=== PATIENT | male | born 1985 | race Caucasian/White ===

== ENCOUNTER → 2023-03-08 18:33 | Outpatient (CLI) | payer OTHER, SELFPAY ==
--- NOTE | 2023-03-08 18:36 | DI.MRI.S_ITS ---
PROCEDURE: MR SHOULDER LT WO CON INDICATIONS: Pain in unspecified shoulder TECHNIQUE: Noncontrast oblique coronal T2 fast spin echo with fat saturation, oblique sagittal T1 spin echo and T2 fast spin echo with fat saturation, axial T1 spin echo and T2 fast spin echo with fat saturation through the shoulder. COMPARISON: None. FINDINGS: Image quality: Excellent. Rotator cuff: Low-grade partial-thickness articular surface tearing of the superior aspect of the subscapularis tendon at the humeral insertion site. The supraspinatus, infraspinatus, and subscapularis tendons otherwise appear intact throughout. Sagittal images demonstrate no muscle atrophy. Bones and bursae: No bone marrow contusions or fractures. Moderate acromioclavicular joint degeneration. The acromion demonstrates conventional anatomy, without an os acromiale. No pathologic subacromial-subdeltoid or subcoracoid bursal fluid is present. Capsule and soft tissues: Labrum is grossly intact The long head of the biceps tendon demonstrates normal location and morphology. The rotator interval appears normal, without fibrosis. The coracohumeral ligament is normal in thickness. IMPRESSION: 1. Low-grade tearing of the subscapularis tendon. 2. Acromioclavicular joint osteoarthritis. Dictated by: Ritesh Rodriguez M.D. on 03/09/2023 at 9:04 Approved by: Ritesh Rodriguez M.D. on 03/09/2023 at 9:18
== END ==
DX: M19.012 Primary osteoarthritis, left shoulder (principal); M75.112 Incomplete rotator cuff tear or rupture of left shoulder, not specified as traumatic; M25.512 Pain in left shoulder
CPT/HCPCS: 73221

== ENCOUNTER → 2024-07-09 08:15 | Outpatient (CLI) | payer OTHER, SELFPAY ==
--- NOTE | 2024-07-09 08:19 | DI.RAD.S_ITS ---
PROCEDURE: XR HAND RT 2V INDICATIONS: RIGHT HAND PAIN TECHNIQUE: 3 views of the hand(s) acquired. COMPARISON: None. FINDINGS: Bones: No fractures or dislocations. Carpal bones are normally aligned. No suspicious bony lesions. Soft tissues: No suspicious soft tissue calcifications. IMPRESSION: No acute bony abnormality. Approved by: Ryley Dong M.D. on 07/09/2024 at 17:58
[2024-07-09 10:18] LABS: Alanine Aminotransferase 34 IU/L (<50); Albumin 4.7 g/dL (3.5-5.0); Albumin Globulin Ratio 1.9 (1.0-2.8); Alkaline Phosphatase 54 U/L (38-126); Aspartate Aminotransferase 29 IU/L (17-59); BUN Creatinine Ratio 13.9 (6-22); Blood Urea Nitrogen 16 mg/dL (9-20); Calcium 9.7 mg/dL (8.4-10.2); Carbon Dioxide 28 mmol/L (22-32); Chloride 102 mmol/L (98-107); Estimated Glomerular Filt Rate > 60 mL/min (>60); Globulin 2.5 g/dL (1.7-4.1); Glucose 102 mg/dL (70-100); HEMOLYSIS < 15 (0-50); Potassium 4.6 mmol/L (3.4-5.1); Sodium 137 mmol/L (137-145); Total Protein 7.2 g/dL (6.3-8.2)
== END ==
LOC: RAD 08:17
PROVIDERS: Referring Provider Chiropractor; Visit Provider Chiropractor
DX: M13.80 Other specified arthritis, unspecified site (principal); M84.40XA Pathological fracture, unspecified site, initial encounter for fracture; E11.9 Type 2 diabetes mellitus without complications
CPT/HCPCS: 36415; 73120; 80053

== ENCOUNTER 2025-02-16 16:11 | Emergency (ER) | payer OTHER, SELFPAY ==
[2025-02-16 16:16] VITALS: BP 116/69; PULSE 72; RESP 16; TEMP 36.8; O2SAT 98; BMI 25.1
--- NOTE | 2025-02-16 16:36 | ED_ITS ---
HPI - Male Genitourinary General Chief complaint: Urogenital-Male Stated complaint: poss UTI Time Seen by Provider: 02/16/25 16:25 Source: patient Mode of arrival: Ambulatory History of Present Illness HPI Narrative: This is a 39-year-old male presenting with concern for possible UTI. Patient states that this morning he noticed some burning with urination which has been persistent/worsening throughout the day. He endorses mild persistent irritation even when he has not peeing but it is much worse when he is peeing. He also states he has been feeling increasing frequency throughout the day. Feels like he has to pee every 15 minutes or so. He denies abdominal pain, pelvic pain, flank pain, fevers, chills, testicular pain, abnormal penile discharge or any concern for STIs. He states he does not believe he has had a UTI before. Related Data Previous Rx's Medication Instructions Recorded nitrofurantoin 100 mg PO Q12H 7 days #14 caps 02/16/25 monohydrate/macrocrystals 100 mg capsule (Macrobid) Allergies Allergy/AdvReac Type Severity Reaction Status Date / Time No Known Drug Allergies Allergy Verified 02/16/25 16:19 Review of Systems Review of Systems Narrative: See HPI Patient History tobacco type: smokeless tobacco Exam Narrative Exam Narrative: GENERAL: [39] year old patient appears stated age. Well-developed patient, generally healthy-appearing, in mild distress. Nontoxic appearing. Note patient is using the restroom frequently. HEAD: Atraumatic. Normocephalic. EYES: Pupils equal round and reactive. Extraocular motions intact. No scleral icterus. No injection or drainage. ENT: Nose without bleeding, purulent drainage. Airway patent. NECK: Trachea midline. Non tender CARDIOVASCULAR: Regular rate and rhythm without murmurs, gallops, or rubs. RESPIRATORY: Clear to auscultation. Breath sounds equal bilaterally. No wheezes, rales, or rhonchi. GASTROINTESTINAL: Abdomen soft, very mild suprapubic tenderness, otherwise non- tender, nondistended, no CVA tenderness. EXTREMITIES: Moving all extremities, normal gait BACK: Nontender without deformity or crepitance. No flank tenderness. NEURO: AOx3. SKIN: No rash or erythema of visible areas Initial Vital Signs Initial Vital Signs: Vital Signs Temperature 98.2 F 02/16/25 16:16 Pulse Rate 72 04/05/25 16:16 Respiratory Rate 16 02/16/25 16:16 Blood Pressure 116/69 02/16/25 16:16 Pulse Oximetry 98 02/16/25 16:16 Oxygen Delivery Method Room Air 02/16/25 16:16 Course Orders Ordered: ED Orders 02/16/25 16:41 Urine Culture Stat Urine Microscopic Stat Discontinued Medications Azithromycin (Azithromycin 250 Mg Tablet) 1,000 mg PO NOW ONE Stop: 02/16/25 17:43 Vital Signs Vital signs: Vital Signs - 8 hr 02/16/25 16:16 Temperature 98.2 F Pulse Rate 72 Respiratory Rate 16 Blood Pressure 116/69 Pulse Oximetry 98 Oxygen Delivery Method Room Air MDM - Male Genitourinary Differential Diagnosis Differential diagnosis: Likely urinary tract infection and urethritis Lab Data Attestation: I reviewed the patient's lab results. Labs: Lab Results 02/16/25 Range/Units 16:41 Urine RBC 0-1/hpf (0-5/HPF) Urine WBC 5-10/hpf H (0-5/HPF) Ur Squamous Epith Cells None seen (0-5/HPF) Urine Bacteria None seen (None) Ur Culture Indicated? Specimen cultured Vol Urine Centrifuged 10ml (spun) MDM Narrative Medical decision making narrative: 39-year-old male presents with concern for burning with urination since this morning with increasing urinary urgency/frequency today. Denies concern for STIs. Urine microscopic does show white blood cells but no bacteria. Patient's symptoms are suggestive of UTI versus urethritis. He denies any discharge or purulent material from his penis and denies again any concern for STIs. He does also have no concerning symptoms suggestive of pyelonephritis or severe UTI. E xam is unremarkable very mild suprapubic tenderness. Patient was given 1 dose of azithromycin today in the ER 1 g; which would treat chlamydial urethritis. And sent out with a prescription for Macrobid. Urine culture sent for further evaluation. Declined testing for STIs. Return precautions provided, follow-up plan discussed, all questions answered. Discharge Plan Departure Patient Disposition: Home Clinical Impression: Urethritis Urinary tract infection Qualifiers: Urinary tract infection type: acute cystitis Hematuria presence: without hematuria Qualified Code(s): N30.00 - Acute cystitis without hematuria Instructions: DI for Urinary Tract Infection (UTI) Activity Restrictions/Additional Instructions: *You have been diagnosed with [UTI/urethritis] *What to do: *Please continue to take your regular medications as directed. [ 1] New medication prescriptions sent to your pharmacy: [Macrobid] [ ] New medication written as a paper prescription [ ] No new medications given *Please follow up with your primary care provider in 2-3 days, call for an appointment. Let them know you were seen in the Emergency Department and that we ask that you be seen in follow up. We will electronically transmit a record of today's note if your PCP is in our system. Your urine dip was suspicious for UTI. Your symptoms are consistent with UTI/urethritis. We did not test for STIs today as you deny concern for this. 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 We sent your urine for culture which is standard practice to further evaluate the cause of your symptoms and make sure you are on the right antibiotic. If you do feel like your symptoms are not improving or you have new or worsening symptoms such as flank pain fevers chills pelvic pain or other symptoms please make sure you seek re-evaluation. I anticipate you will do fine. I hope you feel better soon. *If you do not have a primary care provider please contact the [facility] Resource line at [phone]. They will ask some questions about your medical history and help get you set up with a doctor in the community. *Return to Emergency Department if you should have any new, worsening or concerning symptoms, such as [fever greater than 101 F, shaking chills, worseni ng pain, persistent vomiting or other bothersome symptoms] Prescriptions: New nitrofurantoin monohyd/m-cryst [Macrobid] 100 mg capsule 100 mg PO Q12H 7 Days Qty: 14 0RF Rx Instructions: must administer with a meal/food Referrals: ProviderNicole [Primary Care Provider] - Stand Alone Forms: Patient Portal/API/Survey
[2025-02-16 17:09] LABS: Bacteria Urine None Seen; Culture Indicated Urine Specimen Cultured; RBC Urine 0-1/HPF (0-5/HPF); Squamous Epithelial Cell Urine None Seen (0-5/HPF); Urine Volume 10mL (spun); WBC Urine 5-10/HPF (0-5/HPF)
[2025-02-16] MEDS: AZITHROMYCIN 250 MG TABLET 1000 MG PO (17:49)
[2025-02-16 18:08] VITALS: BP 116/70; PULSE 73; RESP 16; O2SAT 98
== END 2025-02-16 17:53 | disposition home or self-care (01) ==
PROVIDERS: Emergency Provider Student in an Organized Health Care Education/Training Program
DX: N30.00 Acute cystitis without hematuria (principal); N34.2 Other urethritis
CPT/HCPCS: 81015; 87086; 99283

== ENCOUNTER 2025-10-16 13:21 | Emergency (ER) | payer OTHER, SELFPAY ==
[2025-10-16 13:50] VITALS: BP 104/73; PULSE 91; RESP 16; TEMP 36.8; O2SAT 96; BMI 25.7
[2025-10-16 14:30] LABS: Add Manual Diff / Slide Review NO; Hematocrit 44.5 % (41-53); Hemoglobin 15.5 g/dL (13.5-17.5); Lymphocytes Absolute Auto 1400 /uL (1100-4500); Mean Corpuscular HGB Conc 34.8 % (30-36); Mean Corpuscular Hemoglobin 29.7 PG (26-34); Mean Corpuscular Volume 85.2 fL (80-100); Platelet Count 258 X10^3/uL (150-400)
[2025-10-16 14:33] LABS: Alanine Aminotransferase 35 IU/L (<50); Albumin 4.9 g/dL (3.5-5.0); Albumin Globulin Ratio 1.5 (1.0-2.8); Alkaline Phosphatase 56 U/L (38-126); Blood Urea Nitrogen 23 mg/dL (9-20); Calcium 9.1 mg/dL (8.4-10.2); Carbon Dioxide 25 mmol/L (22-32); Chloride 105 mmol/L (98-107); Estimated Glomerular Filt Rate > 60 mL/min (>60); Globulin 3.2 g/dL (1.7-4.1); Glucose 88 mg/dL (70-99); HEMOLYSIS 18 (0-50); Lipase 153 U/L (23-300); Potassium 4.2 mmol/L (3.4-5.1); Sodium 140 mmol/L (137-145); Total Protein 8.1 g/dL (6.3-8.2)
--- NOTE | 2025-10-16 14:46 | ED_ITS ---
HPI - Abdominal Pain General Chief Complaint: Abdominal Pain Stated Complaint: abd pain/flare up (ulcer) Time Seen by Provider: 10/16/25 14:39 History of Present Illness HPI narrative: Mr. Mahoney is a pleasant 40-year-old male with no reported past medical history who presents to the emergency department for acute on chronic epigastric abdominal pain. Patient states he has been dealing with epigastric abdominal pain for about 6 months however it has been getting much worse recently. He is having burning pain in the center of his upper abdomen. Sometimes at night he is having burning/acid reflux. He saw primary care doctor 1 week ago who started him on omeprazole however this has not helped. He has also changed his diet, cut out alcohol, acidic foods and other triggers. He denies fevers, chills, vomiting, diarrhea, constipation, black or bloody stools. No dysuria. No prior upper endoscopies. Related Data Allergies Allergy/AdvReac Type Severity Reaction Status Date / Time No Known Drug Allergies Allergy Verified 10/16/25 13:55 Review of Systems Review of Systems ROS Unobtainable: All systems reviewed & are unremarkable except as noted in HPI and below Patient History tobacco type: smokeless tobacco Exam Narrative Exam Narrative: GENERAL: 40 year old patient appears stated age. Well-developed patient, in no acute distress. HEAD: Atraumatic. Normocephalic. EYES: Extraocular motions intact. No scleral icterus. No injection or drainage. NECK: Trachea midline. Cervical ROM intact. CARDIOVASCULAR: Regular rate and rhythm. RESPIRATORY: ?Nonlabored respirations. ?Speaking in clear, full sentences. ?Clear to auscultation. Breath sounds equal bilaterally. No wheezes, rales, or rhonchi. ? GASTROINTESTINAL: Abdomen soft, nondistended. Mild epigastric tenderness to palpation. No rebound or guarding. Negative Julio's sign. Negative McBurney's point tenderness. EXTREMITIES: No edema or joint tenderness. BACK: No CVA tenderness. NEURO: AOx3. ?Clear speech. ?Moves all 4 extremities appropriately. SKIN: No rash or erythema of visible areas Initial Vital Signs Initial Vital Signs: Vital Signs Temperature 98.3 F 10/16/25 13:50 Pulse Rate 91 H 10/16/25 13:50 Respiratory Rate 16 10/16/25 13:50 Blood Pressure 104/73 10/16/25 13:50 Pulse Oximetry 96 10/16/25 13:50 Oxygen Delivery Method Room Air 10/16/25 13:50 Course Orders Ordered: ED Orders 10/16/25 14:00 Complete Blood Count AUTO DIFF Stat Comprehensive Metabolic Panel Stat Lipase Stat 10/16/25 14:45 CT abdomen pelvis w con Stat 10/16/25 15:00 Urinalysis and Microscopic Stat Discontinued Medications Al Hydrox/Mg Hydrox/Simethicone 30 ml/ Lidocaine HCl 15 ml 0 ml PO NOW ONE Stop: 10/16/25 14:46 Last Admin: 10/16/25 15:06 Dose: 45 ml Documented By: RAHEL Sodium Chloride (Normal Saline 0.9%) 1,000 mls @ 1,000 mls/hr IV BOLUS ONE Stop: 10/16/25 15:44 Last Infusion: 10/16/25 16:25 Dose: Infused Documented By: Admin: 10/16/25 15:07 Dose: 1,000 mls/hr Documented By: RAHEL Ondansetron HCl (Ondansetron 4 Mg/2 Ml Inj) 4 mg IV NOW PRN PRN Reason: Nausea And Vomiting Ondansetron HCl (Ondansetron 4 Mg Odt) 4 mg PO NOW PRN PRN Reason: Nausea And Vomiting Vital Signs Vital signs: Vital Signs - 8 hr 10/16/25 13:50 10/16/25 17:08 Temperature 98.3 F Pulse Rate 91 H 78 Respiratory Rate 16 17 Blood Pressure 104/73 112/71 Pulse Oximetry 96 99 Oxygen Delivery Method Room Air Room Air MDM - Abdominal Pain Medical Records Attestation: I reviewed the patient's medical records. Lab Data 10/16/25 14:00 10/16/25 14:00 Labs: Lab Results 10/16/25 10/16/25 Range/Units 14:00 15:00 WBC 8.1 (4.5-11.0) X10^3/uL RBC 5.22 (4.5-5.9) X10^6/uL Hgb 15.5 (13.5-17.5) g/dL Hct 44.5 (41-53) % MCV 85.2 (80-100) fL MCH 29.7 (26-34) PG MCHC 34.8 (30-36) % RDW 12.7 (11.6-14.8) % Plt Count 258 (150-400) X10^3/uL Neut % (Auto) 74.9 (50-75) % Lymph % (Auto) 17.1 L (25-40) % [place] % (Auto) 7.0 (3-14) % Eos % (Auto) 0.8 L (2-4) % Baso % (Auto) 0.2 (0-2) % Neut # (Auto) 6100 (8734-7381) /uL Lymph # (Auto) 1400 (3050-8566) /uL [place] # (Auto) 600 (0-900) /uL Eos # (Auto) 100 (0-450) /uL Baso # (Auto) 0 (0-100) /uL Sodium 140 (137-145) mmol/L Potassium 4.2 (3.4-5.1) mmol/L Chloride 105 (98-107) mmol/L Carbon Dioxide 25 (22-32) mmol/L BUN 23 H (9-20) mg/dL Creatinine 1.43 H (0.66-1.25) mg/dL Estimated GFR > 60 (>60) mL/min BUN/Creatinine Ratio 16.1 (6-22) Glucose 88 (70-99) mg/dL Calcium 9.1 (8.4-10.2) mg/dL Total Bilirubin 0.6 (0.2-1.3) mg/dL AST 33 (17-59) IU/L ALT 35 (<50) IU/L Alkaline Phosphatase 56 (38-126) U/L Total Protein 8.1 (6.3-8.2) g/dL Albumin 4.9 (3.5-5.0) g/dL Globulin 3.2 (1.7-4.1) g/dL Albumin/Globulin Ratio 1.5 (1.0-2.8) Lipase 153 (23-300) U/L Urine Color Yellow Urine Appearance Clear Urine pH 5.5 (4.5-8.0) Ur Specific [place] 1.015 (1.000-1.035) Urine Protein Negative (Negative) Urine Glucose (UA) Negative (Negative) g/dL Urine Ketones Trace H (NEGATIVE) Urine Occult Blood Negative (Negative) Urine Nitrate Negative (Negative) Urine Bilirubin Negative (NEGATIVE) Urine Urobilinogen 0.2 (0.2) E.U./dL Ur Leukocyte Esterase Negative (NEGATIVE) Urine RBC 0-1/hpf (0-5/HPF) Urine WBC 0-1/hpf (0-5/HPF) Ur Squamous Epith Cells 0-1 /hpf (0-5/HPF) Urine Bacteria Occasional (0-1) (None) Ur Culture Indicated? Cult not indicated Vol Urine Centrifuged 10ml (spun) Imaging Data CT scan - abdomen/pelvis: Radiologist's Impression: PROCEDURE: CT ABDOMEN PELVIS W CON INDICATIONS: EPIGASTRIC pain TECHNIQUE: After the administration of intravenous contrast, axial sections acquired from the lung bases to the pubic symphysis. Coronal and sagittal reformats were performed. For radiation dose reduction, the following was used: automated exposure control, adjustment of mA and/or kV according to patient size. COMPARISON: None. FINDINGS: Image quality: Diagnostic. Lower Chest: No significant findings. ABDOMEN: Liver: No solid mass. Gallbladder: No radiopaque gallstones or wall thickening. Biliary ducts: No biliary dilation. Pancreas: No ductal dilation. Spleen: Size is within normal limits. Adrenal Glands: No adrenal nodules. Kidneys and Ureters: No hydronephrosis. No solid mass. No complex renal cystic lesion which requires follow up. Stomach and Bowel: Normal colonic caliber, without significant wall thickening. Normal appendix. Mild diverticulosis. No acute diverticulitis. Peritoneum: No abnormal intraperitoneal fluid. No free air. Ventral Wall: No significant ventral hernia. Abdominal Nodes: No retroperitoneal or mesenteric adenopathy by size criteria. Vessels: Aorta and inferior vena cava are normal in size. PELVIS: Pelvic Organs: Unremarkable. Bladder: No bladder wall thickening, accounting for underdistention. Pelvic Nodes: No enlarged lymph nodes. Miscellaneous: No inguinal hernias are seen. Bones: No aggressive osseous abnormality. IMPRESSION: 1. No acute abdominal process identified. 2. Mild diverticulosis. 3. Normal appendix. 4. No findings which explain epigastric pain. Dictated by: Murray Costello M.D. on 10/16/2025 at 15:12 Approved by: Murray Costello M.D. on 10/16/2025 at 15:15 [facility] Narrative Medical decision making narrative: 40-year-old male with no reported past medical history who presents to the emergency department for acute on chronic epigastric abdominal pain. Patient states he has been dealing with epigastric abdominal pain for about 6 months however it has been getting much worse recently. Differential diagnosis includes but isn't limited to GERD, gastritis, H pylori, cholecystitis, cholelithiasis, pancreatitis, etc. On exam the patient is in no acute distress, nontoxic appearing, vital signs appropriate. He does have mild epigastric tenderness however pain is most significant at home, was lying flat, he has recently been prescribed omeprazole but with no improvement in symptoms. No black or bloody stools, minimal NSAID use. CBC, CMP, lipase obtained in triage, we will obtain CT abdomen pelvis with IV contrast, treat with IV fluids and GI cocktail. Labs reveal normal lipase 153. Normal LFTs. WBC count within normal limits 8.1, hemoglobin 15.5 hematocrit 44.5. Platelets 258. Sodium 140, potassium 4.2, BUN 23 creatinine 1.43. Prior creatinine 1.15. Glucose 88. Urinalysis revealed some ketones, no infection. CT abdomen pelvis reveals no acute abdominal process, he does have mild diverticulosis, normal appendix, no findings to explain epigastric pain. Printed and reviewed all results with the patient. Advised that he follow up with the PCP for referral for upper endoscopy. Encouraged she continue to use omeprazole, bland diet, avoid alcohol, NSAIDs. Also informed patient of elevated creatinine. Discussed strict ER return precautions and PCP follow up. Patient verbalized understanding all information agreeable with the plan, abdominal exam benign, stable for discharge home. Discharge Plan Departure Patient Disposition: Home Clinical Impression: Abdominal pain, epigastric, Diverticulosis, Elevated serum creatinine Instructions: DI for Epigastric Pain Activity Restrictions/Additional Instructions: Dear Mr. Mahoney, Thank you for coming to the emergency department. Today you were evaluated for epigastric abdominal pain. Your workup today revealed mildly elevated creatinine which is one of your kidney labs. Your CT scan revealed diverticulosis but no other problems. I do recommend that you follow up with your primary care doctor for referral to have an upper endoscopy to further evaluate your abdominal pain. Continue taking the prescribed omeprazole, and use [id number] Tums. Eat a diet that is low in acidic/spicy foods, avoid alcohol, avoid NSAIDs such as ibuprofen, naproxen, Advil, Motrin, aspirin. Please return to the emergency department if you develop severe pain, black or bloody stool, or any other concerns. Please follow up with your primary care doctor within the next 2-3 days for ER follow-up. (If you do not have a PCP you can call [phone]. ?to schedule an appointment with an [facility] Primary Care Provider) IF YOU DEVELOP ANY NEW OR WORSENING SYMPTOMS, RETURN TO THE ER! Please read the attached instructions, they highlight more specific treatments and interventions for you at home. Thank you for letting me participate in your care, Judith Dias PA-C Referrals: ProviderNicole [Primary Care Provider, Family Practice] Stand Alone Forms: Patient Portal/API
[2025-10-16] MEDS: MAG HYDROX/ALUMINUM/SIMETH SUS 30 ML, LIDOCAINE VISCOUS 2% 15 ML PO (15:06)
[2025-10-16] MEDS: SODIUM CHLORIDE 0.9% 1,000 ML 1000 ML IV (15:07)
[2025-10-16 16:11] LABS: Appearance Urine UA CLEAR; Bilirubin Urine UA NEGATIVE (NEGATIVE); Color Urine UA YELLOW; Glucose Urine UA NEGATIVE (Negative); Ketones Urine UA TRACE (NEGATIVE); Leukocyte Esterase Urine UA NEGATIVE (NEGATIVE); Nitrite Urine UA NEGATIVE (Negative); Occult Blood Urine UA NEGATIVE (Negative); Protein Urine UA NEGATIVE (Negative); Specific Gravity Urine UA 1.015 (1.000-1.035); Urobilinogen Urine UA 0.2 E.U./dL (0.2); pH Urine UA 5.5 (4.5-8.0)
[2025-10-16 16:20] LABS: Culture Indicated Urine Cult Not Indicated
[2025-10-16 17:08] VITALS: BP 112/71; PULSE 78; RESP 17; O2SAT 99
== END 2025-10-16 17:09 | disposition home or self-care (01) ==
PROVIDERS: Emergency Provider Physician Assistant
DX: K57.90 Diverticulosis of intestine, part unspecified, without perforation or abscess without bleeding (principal); R10.13 Epigastric pain; R79.89 Other specified abnormal findings of blood chemistry
CPT/HCPCS: 36415; 74177; 80053; 81001; 83690; 85025; 99284; J7030; Q9967